=== PATIENT | female | born 1965 ===

== ENCOUNTER 2016-08-29 08:20 | Day surgery (SDC) | payer OTHER ==
[2015-12-29 07:32] VITALS: BMI 25.9
[2016-08-29] MEDS ORDERED: Lactated Ringer's 500 ML IV ONE (09:25)
[2016-08-29] MEDS ORDERED: Propofol 10 mg/ml Inj (20 ML) ONE (09:44)
[2016-08-29 10:45] VITALS: BP 110/70; PULSE 9; RESP 18; TEMP 97; O2SAT 100
== END 2016-08-29 15:21 | disposition home or self-care (01) ==
LOC: H.ENDO 08:20
PROVIDERS: ATTEND Internal Medicine Gastroenterology
DX: Z12.11 Encounter for screening for malignant neoplasm of colon (principal); K64.0 First degree hemorrhoids